=== PATIENT | female | born 1980 | race Caucasian/White ===

== ENCOUNTER 2021-10-08 05:14 | Emergency (ER) | payer BC, OTHER ==
[~2021-10-08] VITALS: Ht 157.5 cm; Wt 54.5 kg
[~2021-10-08 05:14] MED LIST: DIAZ5TAB PO; DICL100G15 TOP; IBUP-1986 PO
[2021-10-08 05:21] VITALS: BP 110/70
[2021-10-08] MEDS ORDERED: PRED20TA PO (06:43)
== END 2021-10-08 06:55 | disposition home or self-care (01) ==
LOC: ER 05:15
DX: J06.9 Acute upper respiratory infection, unspecified (principal); R21 Rash and other nonspecific skin eruption; F17.210 Nicotine dependence, cigarettes, uncomplicated; Z20.822 Contact with and (suspected) exposure to COVID-19
CPT/HCPCS: 36415; 99283; U0003; U0005